=== PATIENT | male | born 1980 | race Caucasian/White ===

== ENCOUNTER 2017-10-19 16:37 | Emergency (ER) | payer SELFPAY ==
[~2017-10-19] VITALS: Ht 177.8 cm; Wt 70.0 kg
[~2017-10-19 16:37] MED LIST: CLON1 PO; CYMB60CA PO
[2017-10-19 16:41] VITALS: BP 118/80; PULSE 116; RESP 20; TEMP 97.8
[2017-10-19] MEDS ORDERED: ACETAMINOPHEN 325 MG TAB PO ONE (17:15)
[2017-10-19] MEDS ORDERED: CLINDAMYCIN INJ 600 MG in SODIUM CHLORIDE 0.9% INJ 100 ML IV ONE (17:15)
[2017-10-19] MEDS ORDERED: SODIUM CHLORIDE 0.9% FLUSH 10 ML FLUSH IVF PRN (17:15)
[2017-10-19] MEDS ORDERED: KETOROLAC TROMETHAMINE 30 MG/ML (IVP) VIAL IVP ONE (17:15)
--- NOTE | 2017-10-19 18:04 | PD ---
HPI Chief Complaint: Facial Pain or Swelling Time Seen by Provider: 17:00 Travel History International Travel<30 days: No Contact w/Intl Traveler<30days: No Traveled to known affect area: No History of Present Illness HPI 37-year-old male presents emergency department with left-sided jaw swelling and pain over the past 4 days. Patient states 2 weeks ago he had his # 19 tooth removed, and was doing well until 4 days ago when he developed increased pain and swelling at the base of the #18 tooth. He states the pain is now radiating into the left ear and left anterior neck. He denies difficulty swallowing. He denies fever, chills, or other symptoms. He is complaining of 8 out of 10 pain. He denies nausea or vomiting. He has no headache. He has allergies to diphenhydramine. PFSH Past Medical History Anxiety: Yes Depression: Yes Tetanus Vaccination: < 5 Years Influenza Vaccination: No Past Surgical History Tonsillectomy: Yes Social History Alcohol Use: No Tobacco Use: Yes (1 PACK A DAY FOR 19 YEARS,QUIT A WEEK ) Substance Use: No Allergies-Medications (Allergen,Severity, Reaction): Coded Allergies: diphenhydramine (Unverified Allergy, Mild, TWITCHING, 10/19/17) Reported Meds & Prescriptions Reported Meds & Active Scripts Active Review of Systems Except as stated in HPI: all other systems reviewed are Neg General / Constitutional: No: Fever Eyes: No: Visual changes HENT: Positive: Neck Pain, Dental Difficulties, Earache, No: Headaches, Vertigo , Lightheadedness, Sore Throat, Rhinitis, Rhinorrhea, Congestion, Nosebleed, Neck Stiffness, Masses, Gingival Bleeding, Ear Discharge Cardiovascular: No: Chest Pain or Discomfort Respiratory: No: Shortness of Breath Gastrointestinal: No: Abdominal Pain Genitourinary: No: Dysuria Musculoskeletal: No: Pain Skin: No Rash Neurologic: No: Weakness Psychiatric: No: Depression Endocrine: No: Polydipsia Hematologic/Lymphatic: No: Easy Bruising Physical Exam Narrative GENERAL: Patient appears in mild distress. SKIN: Warm and dry. Normal color. Normal turgor. HEAD: Atraumatic. Normocephalic. Patient is obvious swelling to the left lower jaw consistent with his complaints. EYES: Pupils equal and round. No scleral icterus. No injection or drainage. ENT: No nasal bleeding or discharge. Mucous membranes pink and moist. There are dental caries on the #18 tooth which I feel are probably the source of his current infection. He has swelling along the left lower gingiva. No active drainage is noted. Posterior pharynx is normal. Airway patent. NECK: Trachea midline. Supple. Patient has tenderness along the left anterior lymph nodes without signs of Selvin's angina. CARDIOVASCULAR: Regular rate and rhythm. RESPIRATORY: No accessory muscle use. Clear to auscultation. Breath sounds equal bilaterally. GASTROINTESTINAL: Abdomen soft, non-tender, nondistended. Hepatic and splenic margins not palpable. MUSCULOSKELETAL: Extremities without clubbing, cyanosis, or edema. No obvious deformities. NEUROLOGICAL: Awake and alert. No obvious cranial nerve deficits. Motor grossly within normal limits. Five out of 5 muscle strength in the arms and legs. Normal speech. PSYCHIATRIC: Appropriate mood and affect; insight and judgment normal. Data Data Last Documented VS Vital Signs Date Time Temp Pulse Resp B/P (MAP) Pulse Ox O2 Delivery O2 Flow Rate FiO2 10/19/17 16:41 97.8 116 20 118/80 (93) Orders Orders Iv Access Insert/Monitor (10/19/17 17:01) Acetaminophen (Tylenol) (10/19/17 17:15) Ketorolac Inj (Toradol Inj) (10/19/17 17:15) Sodium Chloride 0.9% Flush (Ns Flush) (10/19/17 17:15) Clindamycin Inj (Cleocin Inj) (10/19/17 17:15) MDM Medical Decision Making Medical Screen Exam Complete: Yes Emergency Medical Condition: Yes Differential Diagnosis Dental abscess. Dental pain. Dental caries. Narrative Course IV is started patient is given 600 mg clindamycin IV as well as 30 mg Toradol IV Further medical workup is not felt warranted at this time. Patient will be continued on clindamycin 300 mg 4 times daily for 10 days. Patient is given ibuprofen 800 mg 3 times daily with food #30. Patient is given Mapap 500 mg 2 tabs 3 times daily for pain. #60. Patient to follow-up with dental resources as soon as possible. Patient can return with worsening symptoms if necessary. Diagnosis Primary Impression: Dental abscess Referrals: Dentist Patient Instructions: Dental Abscess (ED), General Instructions Additional Instructions: IV is started patient is given 600 mg clindamycin IV as well as 30 mg Toradol IV Further medical workup is not felt warranted at this time. Patient will be continued on clindamycin 300 mg 4 times daily for 10 days. Patient is given ibuprofen 800 mg 3 times daily with food #30. Patient is given Mapap 500 mg 2 tabs 3 times daily for pain. #60. Patient to follow-up with dental resources as soon as possible. Patient can return with worsening symptoms if necessary. Med/Other Pt SpecificInfo: Prescription(s) given Disposition: 01 DISCHARGE HOME Condition: Stable Brendan Mensah October 19, 2017 18:04
[2017-10-19] MEDS ORDERED: CLIN150C14 PO (18:06)
[2017-10-19] MEDS ORDERED: MAPA500T13 PO (18:06)
[2017-10-19] MEDS ORDERED: IBUP1TAB7 PO (18:06)
[2017-10-19 18:26] VITALS: BP 97/63; PULSE 87; RESP 16; O2SAT 99
== END 2017-10-19 18:28 | disposition home or self-care (01) ==
LOC: NEPD 16:37
DX: K04.7 Periapical abscess without sinus (principal); F17.200 Nicotine dependence, unspecified, uncomplicated
CPT/HCPCS: 96365; 96375; 99284; J1885

== ENCOUNTER 2017-11-07 12:24 | Emergency (ER) | payer SELFPAY ==
[~2017-11-07] VITALS: Ht 177.8 cm; Wt 69.0 kg
[~2017-11-07 12:24] MED LIST changes: +CLIN150C14 PO; -CLON1 PO; -CYMB60CA PO; +IBUP1TAB7 PO; +MAPA500T13 PO
[2017-11-07 13:20] VITALS: BP 133/63; PULSE 93; RESP 14; TEMP 97.9; O2SAT 97
== END 2017-11-07 14:26 | disposition left against medical advice (07) ==
LOC: NED 12:24
DX: Z76.0 Encounter for issue of repeat prescription (principal)
CPT/HCPCS: 99281